=== PATIENT | female | born 1990 | race American Indian/Alaskan Native ===

== ENCOUNTER 2016-12-05 17:43 | Emergency (ER) | payer OTHER ==
[2016-12-05] MEDS ORDERED: TYLENOL PO ONE (18:40)
--- NOTE | 2016-12-05 23:02 | Emergency Department Report ---
- General Chief Complaint: Upper Respiratory Infection Stated Complaint: FLU SX Time Seen by Provider: 12/05/16 22:04 Source: patient Mode of arrival: Ambulatory Limitations: No Limitations - History of Present Illness Initial Comments: Patient presents with cough, fever, body aches that started yesterday. She denies abdominal pain, nausea, vomiting, diarrhea, sick contacts. She also denies shortness of breath. She does admit to mild sore throat and headache. MD Complaint: fever, cough, sore throat -: Sudden Severity scale (0 -10): 10 Quality: other (body aches) Consistency: constant Improves With: nothing Worsens With: nothing Associated Symptoms: fever, chills, headache, sore throat, cough Treatments Prior to Arrival: none - Related Data Previous Rx's Medication Instructions Recorded Last Taken Type Ibuprofen [Motrin 800 MG tab] 800 mg PO Q8HR PRN #20 tablet 12/05/16 Unknown Rx Oseltamivir [Tamiflu] 75 mg PO BID #10 cap 12/05/16 Unknown Rx Allergies Allergy/AdvReac Type Severity Reaction Status Date / Time Penicillins Allergy Hives Verified 12/05/16 18:35 ED Review of Systems ROS: Stated complaint: FLU SX Other details as noted in HPI Constitutional: chills, fever Eyes: denies: eye pain, eye discharge, vision change ENT: denies: ear pain, throat pain Respiratory: cough. denies: shortness of breath, wheezing Cardiovascular: denies: chest pain, palpitations Gastrointestinal: denies: abdominal pain, nausea, diarrhea Genitourinary: denies: urgency, dysuria, discharge Musculoskeletal: as per HPI, myalgia. denies: back pain, joint swelling, arthralgia Skin: denies: rash, lesions Neurological: headache Psychiatric: denies: anxiety, depression ED Past Medical Hx - Past Medical History Previous Medical History?: No - Surgical History Past Surgical History?: No - Social History Smoking Status: Current Every Day Smoker Substance Use Type: None - Medications Home Medications: Home Medications Medication Instructions Recorded Confirmed Last Taken Type Ibuprofen [Motrin 800 MG tab] 800 mg PO Q8HR PRN #20 tablet 12/05/16 Unknown Rx Oseltamivir [Tamiflu] 75 mg PO BID #10 cap 12/05/16 Unknown Rx ED Physical Exam - General Limitations: No Limitations General appearance: alert, in no apparent distress, other (ill appearance but nontoxic) - Head Head exam: Present: atraumatic, normocephalic - Eye Eye exam: Present: normal appearance, PERRL - ENT ENT exam: Present: mucous membranes moist, TM's normal bilaterally - Expanded ENT Exam Expanded Ear exam: Present: normal external inspection Mouth exam: Present: normal external inspection Teeth exam: Present: normal inspection Throat exam: Positive: normal inspection - Neck Neck exam: Present: normal inspection, full ROM. Absent: tenderness - Respiratory Respiratory exam: Present: normal lung sounds bilaterally. Absent: respiratory distress, wheezes, rales, rhonchi - Cardiovascular Cardiovascular Exam: Present: regular rate, normal rhythm. Absent: systolic murmur, diastolic murmur, rubs, gallop - GI/Abdominal GI/Abdominal exam: Present: soft, normal bowel sounds. Absent: tenderness - Extremities Exam Extremities exam: Present: normal inspection, full ROM - Back Exam Back exam: Present: normal inspection, full ROM, tenderness (ttp muscular) - Neurological Exam Neurological exam: Present: alert, oriented X3, CN II-XII intact - Psychiatric Psychiatric exam: Present: normal affect, normal mood - Skin Skin exam: Present: warm, dry, intact, normal color. Absent: rash ED Course Vital Signs 12/05/16 12/05/16 18:35 23:18 Temperature 102.9 F H 98.5 F Pulse Rate 104 H 72 Respiratory 20 16 Rate Blood Pressure 135/89 Blood Pressure 116/63 [Left] O2 Sat by Pulse 100 100 Oximetry ED Medical Decision Making - Medical Decision Making Patient presents with flulike symptoms. She is noted to have a temp of 102.9 she was given Tylenol and her temperature decreased to normal. She denies abdominal pain, sick contacts, shortness of breath. Flu swab was done however lab misplaced it, at approximately 1150 they state they found it but it will take another 30 minutes to result. Patient states she does not have time to wait. Due to her symptoms I will give her prescription for Tamiflu. I'll also give her ibuprofen for her headache and body aches. All advise her to rest, increase fluid intake, take ibuprofen, and do not return to work until fever has resolved without medication. Her exam is wnl. - Differential Diagnosis flu, uri Critical Care Time: No Critical care attestation.: If time is entered above; I have spent that time in minutes in the direct care of this critically ill patient, excluding procedure time. ED Disposition Clinical Impression: Flu-like symptoms Disposition: DISCHARGED TO HOME OR SELFCARE Is pt being admited?: No Does the pt Need Aspirin: No Condition: Stable Instructions: Influenza (ED) Additional Instructions: It is advised to rest, increase fluid intake, and did not return to work until your fever is resolved without medication. Please follow back up in the ED if shortness of breath, chest pain, abdominal pain, or symptoms fail to resolve. Prescriptions: Ibuprofen [Motrin 800 MG tab] 800 mg PO Q8HR PRN #20 tablet PRN Reason: Pain Oseltamivir [Tamiflu] 75 mg PO BID #10 cap Referrals: PRIMARY CARE, [Primary Care Provider] - 3-5 Days Forms: Work/School Release Form(ED) Time of Disposition: 00:00
[2016-12-05 23:20] VITALS: BP 116/63
== END 2016-12-06 00:20 | disposition home or self-care (01) ==
LOC: ED 17:43
DX: R50.9 Fever, unspecified (principal); R05 Cough; J02.9 Acute pharyngitis, unspecified; M79.1 Myalgia; R51 Headache; F17.200 Nicotine dependence, unspecified, uncomplicated; Z88.0 Allergy status to penicillin
CPT/HCPCS: 87400; 99282

== ENCOUNTER 2017-11-09 03:32 | Emergency (ER) | payer SELFPAY ==
[2017-11-09 03:48] VITALS: BP 139/88
== END 2017-11-09 03:50 | disposition left against medical advice (07) ==
LOC: ED 03:32
DX: R51 Headache (principal); Z53.21 Procedure and treatment not carried out due to patient leaving prior to being seen by health care provider

== ENCOUNTER 2018-06-29 16:12 | Emergency (ER) | payer SELFPAY ==
[2018-06-29 16:18] VITALS: BP 126/82
[2018-06-29 20:53] LABS: Bilirubin,Urine NEG (Negative); Blood,Urine NEG (Negative); Color,Urine Yellow (Yellow); Mucus,Urine 3+ /HPF; Renal Epithelial Cells,Urine <1 /LPF
[2018-06-29 21:03] LABS: HCG Qualitative,Urine Negative (Negative)
--- NOTE | 2018-06-29 21:39 | Emergency Department Report ---
ED Female HPI - General Chief complaint: Urogenital-Female Stated complaint: VAGINAL ITCHING Time Seen by Provider: 06/29/18 19:05 Source: patient Mode of arrival: Ambulatory Limitations: No Limitations - History of Present Illness MD Complaint: vaginal discharge -: Gradual, days(s) (3) Radiation: non-radiating Severity scale (0 -10): 0 Improves with: none Worsens with: none Are you Now?: No Associated Symptoms: vaginal discharge. denies: vaginal bleeding, abdominal pain, nausea/vomiting, fever/chills, loss of appetite, dysuria, hematuria, shortness of breath, syncope, weakness - Related Data Previous Rx's Medication Instructions Recorded Last Taken Type Ibuprofen [Motrin 800 MG tab] 800 mg PO Q8HR PRN #20 tablet 12/05/16 Unknown Rx Oseltamivir [Tamiflu] 75 mg PO BID #10 cap 12/05/16 Unknown Rx Fluconazole [Diflucan TAB] 150 mg PO ONCE #1 tablet 06/29/18 Unknown Rx metroNIDAZOLE [Flagyl] 500 mg PO Q12HR #14 tab 06/29/18 Unknown Rx Allergies Allergy/AdvReac Type Severity Reaction Status Date / Time Penicillins Allergy Hives Verified 12/05/16 18:35 ED Review of Systems ROS: Stated complaint: VAGINAL ITCHING Other details as noted in HPI Comment: All other systems reviewed and negative Constitutional: denies: chills, fever Eyes: denies: eye pain, eye discharge, vision change ENT: denies: ear pain, throat pain Respiratory: denies: cough, shortness of breath, wheezing Cardiovascular: denies: chest pain, palpitations Endocrine: no symptoms reported Gastrointestinal: denies: abdominal pain, nausea, diarrhea Genitourinary: discharge. denies: urgency, dysuria Musculoskeletal: denies: back pain, joint swelling, arthralgia Skin: denies: rash, lesions Neurological: denies: headache, weakness, paresthesias Psychiatric: denies: anxiety, depression Hematological/Lymphatic: denies: easy bleeding, easy bruising ED Past Medical Hx - Past Medical History Previous Medical History?: No - Surgical History Past Surgical History?: No - Social History Smoking Status: Never Smoker Substance Use Type: Alcohol - Medications Home Medications: Home Medications Medication Instructions Recorded Confirmed Last Taken Type Ibuprofen [Motrin 800 MG tab] 800 mg PO Q8HR PRN #20 tablet 12/05/16 Unknown Rx Oseltamivir [Tamiflu] 75 mg PO BID #10 cap 12/05/16 Unknown Rx Fluconazole [Diflucan TAB] 150 mg PO ONCE #1 tablet 06/29/18 Unknown Rx metroNIDAZOLE [Flagyl] 500 mg PO Q12HR #14 tab 06/29/18 Unknown Rx ED Physical Exam - General Limitations: No Limitations General appearance: alert, in no apparent distress - Head Head exam: Present: atraumatic, normocephalic - Eye Eye exam: Present: normal appearance, PERRL, EOMI - ENT ENT exam: Present: normal exam, mucous membranes moist - Neck Neck exam: Present: normal inspection - Respiratory Respiratory exam: Present: normal lung sounds bilaterally. Absent: respiratory distress - Cardiovascular Cardiovascular Exam: Present: regular rate, normal rhythm. Absent: systolic murmur, diastolic murmur, rubs, gallop - GI/Abdominal GI/Abdominal exam: Present: soft, normal bowel sounds. Absent: hyperactive bowel sounds, hypoactive bowel sounds, organomegaly - External exam: Absent: erythema, lacerations, ecchymosis Speculum exam: Present: vaginal discharge. Absent: erythema, cervical discharge , vaginal bleeding, foreign body Bi-manual exam: Absent: cervical motion tendernes, adnexal tenderness - Extremities Exam Extremities exam: Present: normal inspection, full ROM - Back Exam Back exam: Present: normal inspection - Neurological Exam Neurological exam: Present: alert, oriented X3 - Psychiatric Psychiatric exam: Present: normal affect, normal mood - Skin Skin exam: Present: warm, dry, intact, normal color. Absent: rash ED Course Vital Signs 06/29/18 16:16 Temperature 97.8 F Pulse Rate 64 Respiratory 16 Rate Blood Pressure 126/82 O2 Sat by Pulse 100 Oximetry Critical care attestation.: If time is entered above; I have spent that time in minutes in the direct care of this critically ill patient, excluding procedure time. ED Disposition Clinical Impression: Vaginal discharge Disposition: DC-01 TO HOME OR SELFCARE Is pt being admited?: No Does the pt Need Aspirin: No Condition: Stable Instructions: Bacterial Vaginosis (ED), Vaginitis (ED) Prescriptions: Fluconazole [Diflucan TAB] 150 mg PO ONCE #1 tablet metroNIDAZOLE [Flagyl] 500 mg PO Q12HR #14 tab Referrals: [facility] [Provider Group] - 3-5 Days PRIMARY CARE [Primary Care Provider] - 3-5 Days Forms: Work/School Release Form(ED)
== END 2018-06-29 21:30 | disposition home or self-care (01) ==
LOC: ED 16:12
DX: N89.8 Other specified noninflammatory disorders of vagina (principal); Z88.0 Allergy status to penicillin
CPT/HCPCS: 81001; 81025; 87210; 99284

== ENCOUNTER 2018-11-06 02:40 | Emergency (ER) | payer SELFPAY ==
[2018-11-06] MEDS ORDERED: BOOSTRIX IM ONE (03:12)
[2018-11-06 03:15] VITALS: BP 136/73
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
== END 2018-11-06 03:50 ==
LOC: ED 02:40
DX: S01.112A Laceration without foreign body of left eyelid and periocular area, initial encounter (principal); Z87.891 Personal history of nicotine dependence; W45.8XXA Other foreign body or object entering through skin, initial encounter; Y93.89 Activity, other specified; Y92.89 Other specified places as the place of occurrence of the external cause; Y99.8 Other external cause status
CPT/HCPCS: 90471; 90715

== ENCOUNTER 2018-11-13 15:32 | Emergency (ER) | payer OTHER ==
--- NOTE | 2018-11-13 15:37 | Emergency Department Report ---
Chief Complaint: Laceration/Recheck/Suture Stated Complaint: SUTURE REMOVAL Time Seen by Provider: 11/13/18 15:37 - HPI History of Present Illness: SUTURE REMOVAL ONLY VSS - Exam Vital Signs: Vital Signs 11/13/18 15:34 Temperature 98 F Pulse Rate 89 Respiratory 16 Rate Blood Pressure 140/85 [Right] O2 Sat by Pulse 100 Oximetry MSE screening note: Focused history and physical exam performed. Due to findings the following was ordered: ED Disposition for MSE Condition: Stable
--- NOTE | 2018-11-13 15:44 | Emergency Department Report ---
Suture/Staple Removal - [facility] Chief Complaint: Laceration/Recheck/Suture Stated Complaint: SUTURE REMOVAL Time Seen by Provider: 11/13/18 15:37 When Sutures or Jovani Placed: 5-7 Days Ago ED Review of Systems ROS: Stated complaint: SUTURE REMOVAL Other details as noted in HPI Comment: All other systems reviewed and negative Constitutional: denies: chills Eyes: denies: eye pain ENT: denies: ear pain Respiratory: denies: cough Cardiovascular: denies: palpitations Endocrine: denies: see HPI Gastrointestinal: denies: nausea Genitourinary: denies: urgency Musculoskeletal: denies: back pain Skin: as per HPI, lesions. denies: rash Neurological: denies: weakness Psychiatric: denies: anxiety Hematological/Lymphatic: denies: easy bleeding ED Past Medical Hx - Past Medical History Previous Medical History?: No - Surgical History Past Surgical History?: No - Social History Smoking Status: Current Every Day Smoker Substance Use Type: Alcohol - Medications Home Medications: Home Medications Medication Instructions Recorded Confirmed Last Taken Type Ibuprofen [Motrin 800 MG tab] 800 mg PO Q8HR PRN #20 tablet 12/05/16 Unknown Rx Oseltamivir [Tamiflu] 75 mg PO BID #10 cap 12/05/16 Unknown Rx Fluconazole [Diflucan TAB] 150 mg PO ONCE #1 tablet 06/29/18 Unknown Rx metroNIDAZOLE [Flagyl] 500 mg PO Q12HR #14 tab 06/29/18 Unknown Rx Ibuprofen [Motrin] 600 mg PO Q8H PRN #20 tablet 11/06/18 Unknown Rx Sulfamethoxazole/Trimethoprim 1 each PO BID #14 tablet 11/06/18 Unknown Rx [Bactrim DS TAB] Suture Removal Exam - Exam General: Vital signs noted. No distress. Alert and acting appropriately. Wound: Yes Pathologic Erythema, Yes Tenderness, No Drainage, No Pus, No Wound Dehiscence Other Systems: All other systems reviewed and are unremarkable. ED Course Vital Signs 11/13/18 15:34 Temperature 98 F Pulse Rate 89 Respiratory 16 Rate Blood Pressure 140/85 [Right] O2 Sat by Pulse 100 Oximetry ED Recheck MDM - Differential Diagnosis Suture/Staple Removal - Medical Decision Making SUTURES REMOVED WITHOUT DIFF PT HAS NOT TAKEN ANTIBIOTIC SHE STATES SHE GO THEM FILLED LAST NIGHT INSTRUCTED ON WOUND CARE Critical care attestation.: If time is entered above; I have spent that time in minutes in the direct care of this critically ill patient, excluding procedure time. ED Disposition Clinical Impression: Visit for suture removal Disposition: DC-01 TO HOME OR SELFCARE Is pt being admited?: No Does the pt Need Aspirin: No Condition: Stable Instructions: Suture Removal (ED) Time of Disposition: 15:44
== END 2018-11-13 15:40 | disposition home or self-care (01) ==
LOC: ED 15:32
DX: Z48.02 Encounter for removal of sutures (principal)

== ENCOUNTER 2021-08-05 14:53 | Emergency (ER) | payer BC ==
[2021-08-05] MEDS ORDERED: LIDOCAINE (2%) 20 MG/1 ML VIAL 20 ML MDV INFILTRATI ONE (15:55)
--- NOTE | 2021-08-05 16:41 | XRay Report ---
3 VIEWS RIGHT LONG FINGER INDICATION / CLINICAL INFORMATION: lac 3R DIGIT COMPARISON: None available. FINDINGS: BONES / JOINT(S): No acute fracture or subluxation. No significant arthritis. SOFT TISSUES: Laceration of the dorsal aspect of the third digit middle phalanx. ADDITIONAL FINDINGS: None. Signer Name: Dawson Mckeon MD Signed: 08/05/2021 4:37 PM Workstation Name: [id number]
--- NOTE | 2021-08-05 17:44 | Emergency Department Report ---
ED Laceration HPI - HPI Chief Complaint: Wound/Laceration Stated Complaint: CUT ON FINGER Time Seen by Provider: 08/05/21 15:51 Occurred When: Today Severity: mild Tetanus Status: Up to Date (2019) Laceration Symptoms: Yes Pain, No Foreign Body Sensation, No Numbness, No Weakness Other History: This is a 30-year-old female nontoxic, well nourished in appearance, no acute signs of distress presents to the ED with c/o of right middle finger laceration that occurred today prior to arrival. Patient stated that he was cutting something and caused a laceration. Patient denies decreased sensation or range of motion. Patient stated bleeding is under control. Denies any numbness, tingling, fever, chills, nausea, vomiting, chest pain, shortness of breath, headache or stiff neck. Patient denies any allergies to significant past medical history. Patient is that he is up-to-date with tetanus in the year 2019. ED Review of Systems ROS: Stated complaint: CUT ON FINGER Other details as noted in HPI Comment: All other systems reviewed and negative Constitutional: denies: chills, fever Eyes: denies: eye pain, eye discharge, vision change ENT: denies: ear pain, throat pain Respiratory: denies: cough, shortness of breath, wheezing Cardiovascular: denies: chest pain, palpitations Endocrine: no symptoms reported Gastrointestinal: denies: abdominal pain, nausea, diarrhea Genitourinary: denies: urgency, dysuria, discharge Musculoskeletal: denies: back pain, joint swelling, arthralgia Skin: denies: rash, lesions Neurological: denies: headache, weakness, paresthesias Psychiatric: denies: anxiety, depression Hematological/Lymphatic: denies: easy bleeding, easy bruising ED Past Medical Hx - Past Medical History Previous Medical History?: No - Surgical History Past Surgical History?: No - Social History Smoking Status: Current Every Day Smoker Substance Use Type: Alcohol - Medications Home Medications: Home Medications Medication Instructions Recorded Confirmed Last Taken Type Ibuprofen [Motrin 800 MG tab] 800 mg PO Q8HR PRN #20 tablet 12/05/16 Unknown Rx Oseltamivir [Tamiflu] 75 mg PO BID #10 cap 12/05/16 Unknown Rx Fluconazole (Nf) [Diflucan TAB] 150 mg PO ONCE #1 tablet 06/29/18 Unknown Rx metroNIDAZOLE [Flagyl] 500 mg PO Q12HR #14 tab 06/29/18 Unknown Rx Ibuprofen [Motrin] 600 mg PO Q8H PRN #20 tablet 11/06/18 Unknown Rx Sulfamethoxazole/Trimethoprim 1 each PO BID #14 tablet 11/06/18 Unknown Rx [Bactrim DS TAB] Naproxen 500 mg PO Q12H PRN #12 tablet 08/05/21 Unknown Rx Sulfamethoxazole/Trimethoprim 1 each PO BID #14 tablet 08/05/21 Unknown Rx [Bactrim DS TAB] Laceration Physical Exam - Exam General: Vital signs noted. No distress. Alert and acting appropriately. Wound Length (cm): 2 (Right middle finger superficial) Laceration Location: Upper Extremity Laceration Exam: Yes Normal Distal CMS, No Foreign Body, No Exposed Tendon, Vessel, or Nerve, No Tendon Injury ED Course Vital Signs 08/05/21 15:43 Temperature 98.4 F Pulse Rate 74 Respiratory 18 Rate Blood Pressure 135/85 [Right] O2 Sat by Pulse 99 Oximetry - Reevaluation(s) Reevaluation #1: 08/05/21 17:46 Patient is speaking in full sentences with no signs of distress noted. - Laceration /Wound Repair Right Finger Wound Location: upper extremity (right middle finger) Wound Length (cm): 2 Wound's Depth, Shape: superficial Wound Explored: clean Irrigated w/ Saline (ccs): 40 Volume Anesthetic (ccs): 3 (2 % lidocaine plain) Wound Repaired With: sutures Suture Size/Type: 4:0, nylon Number of Sutures: 3 Layer Closure?: No Sterile Dressing Applied?: Yes Progress: Under sterile field, I used Betadine to clean the area. I then used 40 mL of normal saline to flush the area. I then used 2% lidocaine plain and injected 3 mL to the wound. I then used a 4-0 Prolene to suture the laceration. Number of stitches 3. I then applied a sterile 4 x 4 with tape. Minimal bleeding noted but is under control. Patient tolerated procedure well with no signs of distress. ED Medical Decision Making - Radiology Data [facility] [address] [place] [address] XRay Report Signed Patient: AMADO MEJIAS MR#: [id number] : 1990 Acct:[id number] Age/Sex: 30 / F ADM Date: 08/05/21 Loc: ED Attending Dr: Ordering Physician: WILL AMIN NP Date of Service: 08/05/21 Procedure(s): XR finger(s) 2+V RT Accession Number(s): [id number] cc: WILL AMIN NP Fluoro Time In Minutes: 3 VIEWS RIGHT LONG FINGER INDICATION / CLINICAL INFORMATION: lac 3R DIGIT COMPARISON: None available. FINDINGS: BONES / JOINT(S): No acute fracture or subluxation. No significant arthritis. SOFT TISSUES: Laceration of the dorsal aspect of the third digit middle phalanx. ADDITIONAL FINDINGS: None. Signer Name: Dawson Mckeon MD Signed: 08/05/2021 4:37 PM Workstation Name: [id number] Transcribed By: SB Dictated By: DAWSON MCKEON MD Electronically Authenticated By: DAWSON MCKEON MD Signed Date/Time: 08/05/211636 DD/ 35 TD/TT: - Medical Decision Making This is a 30-year-old female that presents with laceration. Patient is stable and was examined by me. The laceration suturing has been performed and has been performed and patient tolerated well. A sterile dressing has been applied. Patient was educated on proper wound care. Patient was instructed to return in 10 days for suture removal. Patient was instructed to refer to Follow-up with a primary care doctor in 3-5 days or if symptoms worsen and continue return to emergency room as soon as possible. At time of discharge, the patient does not seem toxic or ill in appearance. No acute signs of distress noted. Patient agrees to discharge treatment plan of care. No further questions noted by the patient. Critical care attestation.: If time is entered above; I have spent that time in minutes in the direct care of this critically ill patient, excluding procedure time. ED Disposition Clinical Impression: Laceration Disposition: 01 HOME / SELF CARE / HOMELESS Is pt being admited?: No Does the pt Need Aspirin: No Condition: Stable Instructions: Laceration Care, Adult Additional Instructions: Follow-up with a primary care doctor in 3-5 days or if symptoms worsen and continue return to emergency room as soon as possible. Return in 10 days for suture removal. Prescriptions: Sulfamethoxazole/Trimethoprim [Bactrim DS TAB] 1 each PO BID #14 tablet Naproxen 500 mg PO Q12H PRN #12 tablet PRN Reason: Pain , Severe (7-10) Referrals: PRIMARY CAREMD [Primary Care Provider] - 3-5 Days WENDY STEVENS MD [Staff Physician] - 3-5 Days Forms: Work/School Release Form(ED) Time of Disposition: 18:01
[2021-08-05 18:25] VITALS: BP 135/86
== END 2021-08-05 18:26 | disposition home or self-care (01) ==
LOC: ED 14:53
DX: S61.212A Laceration without foreign body of right middle finger without damage to nail, initial encounter (principal); W45.8XXA Other foreign body or object entering through skin, initial encounter; Y93.89 Activity, other specified; Y92.89 Other specified places as the place of occurrence of the external cause; Y99.8 Other external cause status; F17.200 Nicotine dependence, unspecified, uncomplicated
CPT/HCPCS: 12001; 73140; 99283; J3490

== ENCOUNTER 2021-08-15 12:24 | Emergency (ER) | payer SELFPAY ==
[2021-08-15 12:28] VITALS: BP 139/85
--- NOTE | 2021-08-15 12:33 | Emergency Department Report ---
Suture/Staple Removal - HPI Chief Complaint: Extremity Problem,Nontraumatic Stated Complaint: Remove stitches Time Seen by Provider: 08/15/21 12:30 When Sutures or [place] Placed: 8-10 Days Ago Wound Location: right 3rd finger ED Review of Systems ROS: Stated complaint: Remove stitches Other details as noted in HPI Comment: All other systems reviewed and negative Skin: other (Repair laceration right third finger) ED Past Medical Hx - Social History Smoking Status: Current Every Day Smoker Substance Use Type: Alcohol - Medications Home Medications: Home Medications Medication Instructions Recorded Confirmed Last Taken Type Ibuprofen [Motrin 800 MG tab] 800 mg PO Q8HR PRN #20 tablet 12/05/16 Unknown Rx Oseltamivir [Tamiflu] 75 mg PO BID #10 cap 12/05/16 Unknown Rx Fluconazole (Nf) [Diflucan TAB] 150 mg PO ONCE #1 tablet 06/29/18 Unknown Rx metroNIDAZOLE [Flagyl] 500 mg PO Q12HR #14 tab 06/29/18 Unknown Rx Ibuprofen [Motrin] 600 mg PO Q8H PRN #20 tablet 11/06/18 Unknown Rx Sulfamethoxazole/Trimethoprim 1 each PO BID #14 tablet 11/06/18 Unknown Rx [Bactrim DS TAB] Naproxen 500 mg PO Q12H PRN #12 tablet 08/05/21 Unknown Rx Sulfamethoxazole/Trimethoprim 1 each PO BID #14 tablet 08/05/21 Unknown Rx [Bactrim DS TAB] Suture Removal Exam - Exam General: Vital signs noted. No distress. Alert and acting appropriately. Wound: No Pathologic Erythema, No Tenderness, No Drainage, No Pus, No Wound Dehiscence Other Systems: All other systems reviewed and are unremarkable. ED Course Vital Signs 08/15/21 12:27 Temperature 97.9 F Pulse Rate 63 Respiratory 16 Rate Blood Pressure 139/85 [Right] O2 Sat by Pulse 98 Oximetry - Procedure Description Procedures done: Suture removal. Right third finger. Sutures noted to the dorsal aspect of the right third finger. No signs of infections. Wound healing well. No wound dehiscence. All sutures removed without any complication. Critical care attestation.: If time is entered above; I have spent that time in minutes in the direct care of this critically ill patient, excluding procedure time. ED Disposition Clinical Impression: Visit for suture removal Disposition: HOME / SELF CARE / HOMELESS Is pt being admited?: No Does the pt Need Aspirin: No Condition: Stable Instructions: Wound Closure Removal, Care After Additional Instructions: Continue to keep wound clean with soap and water. Do not use peroxide or alcohol. Apply a thin layer of Neosporin after each cleaning. You can do this for another 3 to 4 days. Follow-up with your PCP as needed. Return to the ER if your symptoms changes or worsens in any way. Referrals: [facility] [Provider Group] - as needed Time of Disposition: 12:33
== END 2021-08-15 12:48 | disposition home or self-care (01) ==
LOC: ED 12:24
DX: S61.212D Laceration without foreign body of right middle finger without damage to nail, subsequent encounter (principal); X58.XXXD Exposure to other specified factors, subsequent encounter; F17.200 Nicotine dependence, unspecified, uncomplicated; F10.20 Alcohol dependence, uncomplicated